=== PATIENT | male | born 1975 | race Caucasian/White ===

== ENCOUNTER 2018-01-18 15:46 | Emergency (ER) | payer BC, OTHER ==
[2018-01-18 16:09] VITALS: BMI 36.6
[2018-01-18 16:12] VITALS: BP 163/114; PULSE 102; RESP 20; TEMP 98.2; O2SAT 97
[2018-01-18] MEDS ORDERED: Oxycodone/Acetaminophen 5/325 mg Tab PO STA (16:15)
--- NOTE | 2018-01-18 16:19 | C.PDOC ---
History Of Present Illness 42 year old male presents to the emergency room with complaints of pain in his foot after tripping yesterday. Patient denies ankle pain, taking medicine at home, and any medicinal allergies. Time Seen by Provider: 01/18/18 16:11 History Per: Patient History/Exam Limitations: no limitations Onset/Duration Of Symptoms: Days (1) - Ankle/Foot Description Of Injury: Other (trip) Past Medical History Reviewed: Historical Data, Nursing Documentation, Vital Signs Vital Signs: Last Vital Signs Temp 98.2 F 01/18/18 16:11 Pulse 102 H 01/18/18 16:11 Resp 20 01/18/18 16:11 BP 163/114 H 01/18/18 16:11 Pulse Ox 97 01/18/18 17:40 - Medical History PMH: No Chronic Diseases Denies: Depression Surgical History: No Surg Hx - [facility] Procedures APPLICATION OF SPLINT (11/29/12) Family History: States: No Known Family Hx - Social History Hx Tobacco Use: Yes (0.5ppd) Hx Alcohol Use: No Hx Substance Use: No Review Of Systems Except As Marked, All Systems Reviewed And Found Negative. Musculoskeletal: Positive for: Foot Pain Physical Exam - Physical Exam Appears: Well, Non-toxic Skin: Normal Color Head: Atraumatic, Normacephalic Extremity: Tenderness (over dorsal aspect), Swelling (diffuse edema to right foot) Neurological/Psych: Oriented x3, Normal Speech, Normal Cognition ED Course And Treatment O2 Sat by Pulse Oximetry: 97 (RA) Pulse Ox Interpretation: Normal Progress Note: Patient was administered Percocet PO. X-rays of Ankle and Foot ordered, both with three views. Disposition Counseled Patient/Family Regarding: Studies Performed, Diagnosis, Need For Followup, Rx Given - Disposition Referrals: [facility] [Outside] Disposition: HOME/ ROUTINE Disposition Time: 16:30 Condition: STABLE Additional Instructions: Follow up with Podiatry Clinic on Mondays from Noon-4 PM for further evaluation and treatment return to ED if nay worsening or new changes. 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 - Scribe Statement The provider has reviewed the documentation as recorded by the Scribe (Davin Wallis) All medical record entries made by the Scribe were at my direction and personally dictated by me. I have reviewed the chart and agree that the record accurately reflects my personal performance of the history, physical exam, medical decision making, and the department course for this patient. I have also personally directed, reviewed, and agree with the discharge instructions and disposition.
[2018-01-18] MEDS ORDERED: Oxycodone/Acetaminophen 5/325 mg Tab ONE (16:23)
--- NOTE | 2018-01-18 16:50 | C.PDOC ---
History Of Present Illness 42 year old male w/PMHx of HTN, non-compliant with medication, presents to the emergency room with complaints of pain in his right foot after " something heavy fell onto my foot" yesterday. Patient admits, pain is localized over the foot and worse with weight bearing. Otherwise, pt denies ankle pain, obvious deformity, weakness, sensory or vascular deficits to Right foot, denies previous surgery to Right foot or ankle. Ambulate to ED. Time Seen by Provider: 01/18/18 16:11 Chief Complaint (Nursing): Lower Extremity Problem/Injury History/Exam Limitations: no limitations - Ankle/Foot Description Of Injury: Fell (tripped) Past Medical History Vital Signs: Last Vital Signs Temp 98.2 F 01/18/18 16:11 Pulse 102 H 01/18/18 16:11 Resp 20 01/18/18 16:11 BP 163/114 H 01/18/18 16:11 Pulse Ox 97 01/18/18 16:54 - Medical History PMH: No Chronic Diseases Denies: Depression Surgical History: No Surg Hx - [facility] Procedures APPLICATION OF SPLINT (11/29/12) Family History: States: No Known Family Hx - Social History Hx Tobacco Use: Yes (0.5ppd) Hx Alcohol Use: No Hx Substance Use: No Review Of Systems Except As Marked, All Systems Reviewed And Found Negative. Musculoskeletal: Positive for: Foot Pain Physical Exam - Physical Exam Appears: Well, Non-toxic, No Acute Distress Skin: Normal Color, Warm, No Ecchymosis Head: Atraumatic, Normacephalic Eye(s): bilateral: PERRL Extremity: Normal ROM (mild discomfort to Right foot [place] due to pain. No deformity, no neurovascular deficits.), Tenderness (over dorsal aspect Right foot), No Calf Tenderness, Capillary Refill (less than 2sec to Right foot), No Deformity, Swelling (diffuse edema to the right foot) Neurological/Psych: Oriented x3, Normal Speech, Normal Cognition, Normal Motor, Normal Sensation, Normal Reflexes ED Course And Treatment O2 Sat by Pulse Oximetry: 97 (RA) Pulse Ox Interpretation: Normal - Other Rad Ankle and foot, RIght X-Ray: Interpreted by Me, Viewed By Me Interpretation: (-) acute fx or dilsocation Progress Note: On re-eval, pt is afebrile, hemodynamicaly stable. NOn-toxic. RLE: exam c/w Right foot contusion, mild tenderness dorsal aspect. NO deformiyt , no neurovascular deficits. Imaging review and appears normal. Monster wrap applied to Right foot. Air cats applied to Right foot. Pt advised and ref. to f /u with Podiatry Clinic in 1-2 days for re-eavl. return if any new changes. HTN noted on triage, advised to F/u with PMD for re-check and tx as need. Disposition Counseled Patient/Family Regarding: Studies Performed, Diagnosis, Need For Followup, Rx Given - Disposition Referrals: [facility] [Outside] Disposition: HOME/ ROUTINE Disposition Time: 16:47 Condition: STABLE Additional Instructions: Follow up with Podiatry Clinic on Mondays from Noon-4 PM for further evaluation and treatment return to ED if nay worsening or new changes. Prescriptions: traMADol [Ultram] 50 mg PO TID #7 tab Instructions: Foot Sprain (DC), High Blood Pressure (DC) Forms: [employer] (Italian) - Clinical Impression Clinical Impression: Foot contusion, Hypertension - PA / 3D DESIGNER / Resident Statement MD/DO has reviewed & agrees with the documentation as recorded. - Scribe Statement The provider has reviewed the documentation as recorded by the Scribe (Davin Wallis) All medical record entries made by the Scribe were at my direction and personally dictated by me. I have reviewed the chart and agree that the record accurately reflects my personal performance of the history, physical exam, medical decision making, and the department course for this patient. I have also personally directed, reviewed, and agree with the discharge instructions and disposition.
--- NOTE | 2018-01-18 17:28 | RAD ---
PROCEDURE: Right Ankle Radiographs. HISTORY: injury COMPARISON: Comparison made with concurrent radiographs of the right foot. FINDINGS: BONES: No evidence of acute displaced fracture nor dislocation. The osseous structures appear intact. Talar dome intact. Tiny plantar surface calcaneal enthesophyte. JOINTS: Ankle mortise maintained. SOFT TISSUES: Mild soft tissue swelling over the lateral and to a lesser degree medial malleoli. The OTHER FINDINGS: None. IMPRESSION: No evidence of acute fractures. Mild bilateral soft tissue swelling lateral greater than medial
--- NOTE | 2018-01-18 17:29 | RAD ---
PROCEDURE: Right Foot Radiographs. HISTORY: injury COMPARISON: Comparison made with concurrent radiographs of the right ankle. FINDINGS: BONES: No evidence of acute displaced fracture nor dislocation. The osseous structures appear intact. JOINTS: Joint spaces preserved. SOFT TISSUES: Mild soft tissue swelling over the lateral malleolus seen on concurrent radiographs of the right ankle less well seen on this study OTHER FINDINGS: None. IMPRESSION: No acute fractures. If symptoms persist or occult fracture suspected clinically recommend followup radiographs in 5-10 days as most fractures should become radiographically evident in this timeframe.
== END 2018-01-18 16:58 | disposition home or self-care (01) ==
LOC: C.ER 15:46
DX: S90.31XA Contusion of right foot, initial encounter (principal); W01.0XXA Fall on same level from slipping, tripping and stumbling without subsequent striking against object, initial encounter; I10 Essential (primary) hypertension